=== PATIENT | male | born 1965 | race Caucasian/White ===

== ENCOUNTER → 2021-03-12 | Outpatient (CLI) | payer OTHER | LOC: SJCVCIMAG 13:14 | PROVIDERS: ATTEND Family Medicine | DX: I37.1 Nonrheumatic pulmonary valve insufficiency (principal); Z86.16 Personal history of COVID-19 ==

== ENCOUNTER → 2021-07-03 | Outpatient (CLI) | payer OTHER | LOC: SJCVCIMAG 08:17 | PROVIDERS: ATTEND Family Medicine | DX: Z13.6 Encounter for screening for cardiovascular disorders (principal); Z72.89 Other problems related to lifestyle ==